=== PATIENT | female | born 1990 | race Caucasian/White ===

== ENCOUNTER 2022-11-08 02:09 | Emergency (ER) | payer BC, SELFPAY ==
[2022-11-08 02:12] VITALS: BP 122/82; PULSE 88; RESP 20; O2SAT 100
--- NOTE | 2022-11-08 02:14 | ED.DENTAL ---
HPI - Dental/Oral General Chief complaint: Dental/Oral Stated complaint: Tooth Pain Time Seen by Provider: 11/08/22 02:13 History of Present Illness HPI Narrative: This is a 32-year-old female with past medical history of dental caries, status post tooth extraction 3 days ago, who presents to the emergency department with pain and swelling at the extraction site. She states the pain is dull, rated 6 out of 10 without radiation. She is primarily concerned with swelling at the jaw. She states she has taken ibuprofen approximately 6-8 hours ago with some improvement. She denies difficulty swallowing or breathing. Related Data Allergies Allergy/AdvReac Type Severity Reaction Status Date / Time No Known Allergies Allergy Verified 11/08/22 02:15 Review of Systems Review of Systems: CONSTITUTIONAL: Denies fever, chills, or sweats. ENT: Left-sided dental pain denies rhinorrhea, congestion, sore throat, or otalgia. CARDIOVASCULAR: Denies chest pain, palpitations, or edema. RESPIRATORY: Denies cough or dyspnea. GASTROINTESTINAL: Denies abdominal pain, nausea, vomiting, or diarrhea. GENITOURINARY: Denies dysuria or hematuria. Currently menstruating SKIN: Denies rash or itching. NEUROLOGIC: Denies headache, numbness, dizziness, or weakness. PSYCHIATRIC: Denies anxiety or depression. [facility] Past Medical History Medical History (Updated 11/08/22 @ 02:29 by Sergio Aguero MD) Factor V Leiden Surgical History Surgical History (Updated 11/08/22 @ 02:29 by Sergio Aguero MD) H/O section History of cholecystectomy Exam Narrative: GENERAL: Well-developed, well-nourished, and in no acute distress. HEAD: Normocephalic, atraumatic. EYES: PERRLA and EOMI. ENT: Mild erythema and swelling at tooth number 17, tender to palpation. There does not appear to be any exposed bone. Nares clear, no rhinorrhea or epistaxis. Mucous membranes moist. Oropharynx without tonsillar hypertrophy exudate NECK: Supple. No adenopathy or masses. No carotid bruits or JVD CHEST: Clear to auscultation. No respiratory distress. No wheezes rales or rhonchi HEART: Regular rate and rhythm. No murmur heard. Normal peripheral pulses. EXTREMITIES: Normal range of motion. No edema. PSYCH: Normal mood and affect. Course Course Emergency Course: 02:18 - Exam is consistent with periapical abscess. Will treat with IM Toradol and antibiotics with recommendation for close dental follow-up. Discussed return emergency precautions including signs/symptoms of airway compromise. The patient voiced understanding and is comfortable with the plan. All questions answered to her satisfaction. Vital Signs Vital signs: Vital Signs Pulse Rate 88 11/08/22 02:12 Respiratory Rate 20 11/08/22 02:12 Blood Pressure 122/82 11/08/22 02:12 Pulse Oximetry 100 11/08/22 02:12 Oxygen Delivery Room Air 11/08/22 02:12 Pulse Rate 88 11/08/22 02:12 Respiratory Rate 20 11/08/22 02:12 Blood Pressure 122/82 11/08/22 02:12 Pulse Oximetry 100 11/08/22 02:12 Oxygen Delivery Room Air 11/08/22 02:12 MDM - Dental/Oral MDM Narrative Medical decision making narrative: Plan: Pain control, antibiotics, dental follow up Differential Diagnosis Differential diagnosis: Likely dental caries, dental abscess and other Discharge Plan Discharge Clinical Impression: Toothache, Dental abscess Patient Disposition: Home, Self-Care Condition: Stable Instructions: Antibiotic Form, Dental Abscess (ED) Additional Instructions: You were seen in the emergency department. Your exam is consistent with an early dental abscess. I recommend antibiotics and follow-up with your dentist. If you develop difficulty breathing, difficulty swallowing, or other emergent concerns for life, limb, or eyesight, return to the emergency department. Patient Language: Ecuadorean Prescriptions: New amoxicillin-pot clavulanate 875-125 mg tablet 1 tablet
[2022-11-08] MEDS: AMOXICILLIN/CLAVULANATE K 875-125 MG TAB 1 TABLET PO (02:19)
[2022-11-08] MEDS: KETOROLAC 30 MG/ML VIAL (*BKC) IM (02:19)
[2022-11-08 02:28] VITALS: BP 122/86; PULSE 69; RESP 20; TEMP 36.6; O2SAT 100
== END 2022-11-08 02:31 | disposition home or self-care (01) ==
LOC: CHSED 02:28
PROVIDERS: Emergency Provider Preventive Medicine Aerospace Medicine
DX: K08.89 Other specified disorders of teeth and supporting structures (principal); K04.7 Periapical abscess without sinus
CPT/HCPCS: 96372; 99283; A9270; J1885

== ENCOUNTER 2023-10-07 15:57 | Emergency (ER) | payer SELFPAY ==
[2023-10-07 15:57] VITALS: BP 130/78; PULSE 108; RESP 20; TEMP 37.6; O2SAT 99
--- NOTE | 2023-10-07 16:03 | ED.GENADULT ---
HPI - General Adult General Chief complaint: Extremity Injury, Lower Stated complaint: left leg pain Time Seen by Provider: 10/07/23 16:03 History of Present Illness HPI narrative: Leola is a 33F with a PMH of Factor V Leiden mutation, tobacoo abuse that presented to the ED with pain and swelling in her left low leg. She had been having pain from the back of her buttock down the back of her leg for some time but it was improving. A few days ago she started having pain in her left medial groin down to her leg along with swelling. She has been off work and has been more sedentary. She is not taking her aspirin and she is currently smoking. She denies CP, dyspnea, lightheadedness, fevers and chills. Related Data Allergies Allergy/AdvReac Type Severity Reaction Status Date / Time No Known Allergies Allergy Verified 10/07/23 16:06 Review of Systems Review of Systems: All systems reviewed & are unremarkable except as noted in HPI and below PMFSH Past Medical History Medical History (Updated 10/07/23 @ 16:25 by Jeramy Larios DO) Factor V Leiden Surgical History Surgical History (Updated 11/08/22 @ 02:29 by Sergio Aguero MD) H/O section History of cholecystectomy Exam Const: General: healthy appearing and no acute distress Nutritional Appearance: well nourished Orientation/consciousness: patient oriented x3 HENMT: Head: normal to inspection Ears: external ears normal Face and sinus: normal facial exam Eyes: Conjunctivae: conjunctivae normal Pupils: Equal, round and reactive pupils present Neck: Neck: normal visual inspection Chest: Chest palpation & inspection: normal inspection of the chest Resp: Effort & Inspection: normal respiratory effort Cardio: Rate: regular rate GI: Inspection: non-distended Skin: General skin exam: normal color Neuro: General: patient oriented x3 and moves all extremities Extrem: Other: Left leg was swollen and TTP with a +Christian sign. In addition the left calf measured 50cm while the right measured 44. Course Course Emergency Course: Given her FActor V, smoking, inactivity and physical exam she most likely has a DVT. However, as it is a holiday we do not have US services. She was treated with lovenox in the ED and an outpatient order was given for a lower extremity ultrasound. She was instructed to call scheduling tomorrow and get it done LITZY and to stay on the lovenox until then. 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 She does not have a PCP so a list was given to her to establish quickly. She was instructed to return to the ED for any new symptoms including chest pain or dyspnea. Vital Signs Vital signs: Vital Signs Temperature 99.7 F H 10/07/23 15:57 Pulse Rate 108 H 10/07/23 15:57 Respiratory Rate 20 10/07/23 15:57 Blood Pressure 130/78 10/07/23 15:57 Pulse Oximetry 99 10/07/23 15:57 Oxygen Delivery Room Air 10/07/23 15:57 Temperature 99.7 F H 10/07/23 16:07 Pulse Rate 108 H 10/07/23 16:07 Respiratory Rate 20 10/07/23 16:07 Blood Pressure 130/78 10/07/23 16:07 Pulse Oximetry 99 10/07/23 16:07 Oxygen Delivery Room Air 10/07/23 16:07 Medical Decision Making Vital Signs Vital Signs: Vital Signs Temperature 99.7 F H 10/07/23 15:57 Pulse Rate 108 H 10/07/23 15:57 Respiratory Rate 20 10/07/23 15:57 Blood Pressure 130/78 10/07/23 15:57 Pulse Oximetry 99 10/07/23 15:57 Oxygen Delivery Room Air 10/07/23 15:57 Temperature 99.7 F H 10/07/23 16:07 Pulse Rate 108 H 10/07/23 16:07 Respiratory Rate 20 10/07/23 16:07 Blood Pressure 130/78 10/07/23 16:07 Pulse Oximetry 99 10/07/23 16:07 Oxygen Delivery Room Air 10/07/23 16:07 Discharge Plan Discharge Clinical Impression: DVT (deep venous thrombosis) Patient Disposition: Home, Self-Care Condition: Stable Instructions: Deep Vein Thrombosis (ED) Additional Instruction
[2023-10-07 16:07] VITALS: BP 130/78; PULSE 108; RESP 20; TEMP 37.6; O2SAT 99
[2023-10-07] MEDS: ENOXAPARIN 120 MG/0.8 ML SYRINGE SUB-Q (16:28)
[2023-10-07] MEDS: HYDROcodone/acetaminophen (*CRX) 5-325 MG TABLET 1 TAB PO (16:56)
== END 2023-10-07 17:00 | disposition home or self-care (01) ==
PROVIDERS: Emergency Provider Family Medicine
DX: I82.402 Acute embolism and thrombosis of unspecified deep veins of left lower extremity (principal); D68.51 Activated protein C resistance; F17.200 Nicotine dependence, unspecified, uncomplicated
CPT/HCPCS: 96372; 99283; A9270; J1650

== ENCOUNTER → 2025-01-30 13:23 | Outpatient (REF) | payer OTHER, SELFPAY ==
--- OUTSIDE RECORDS SUMMARY | 2025-01-30 14:57 | XMS_ITS | Clinical Summary ---
Author Organization [facility] Address [address] [place] [id number] Care Team Providers Care Keypunch Operator Name Role Phone AdZachhardik CAMPOS Primary Care Provider Allergies No known active allergies Medications apixaban (ELIQUIS) 5 MG tablet Take 1 tablet (5 mg total) by mouth 2 (two) times daily. 60 tablet 04/30/2024 Active Encounters Date Type Department Care Team Description 01/22/2025 Patient Self-Triage [facility] DEFAULT [facility]ri [facility] Provider 01/18/[address] [place] [address] Kanwal Heck MD Appointment Request from Last 3 Months Social History Tobacco Use Types Packs/Day Years Used Date Smoking Tobacco: Every Day Cigarettes 11.2 Started: 2013 Smokeless Tobacco: Never Tobacco Cessation:Ready to Q uit: Not Asked; Counseling Given: Not Answered Alcohol Use Standard Drinks/Week Comments Not Currently 0 (1 standard drink = 0.6 oz pur e alcohol) Comments No Sex and Gender Information Value Date Recorded Sex Assigned at Not on file Legal Sex Female 6:45 PM CDT Gender Identity Not on file Sexual Orientation Not on file Last Filed Vital Signs Vital Sign Reading Time Taken Comments Blood Pressure 141/84 09/14/2024 2:00 PM CDT Pulse 108 09/14/2024 12:05 PM CDT Temperature 36.2 C (97.2 F) 09/14/2024 12:05 PM CDT Respiratory Rate 18 09/14/2024 2:00 PM CDT Oxygen Saturation 100% 09/14/2024 2:00 PM CDT Inhaled Oxygen Concentration - - Weight 117.9 kg (260 lb) 09/14/2024 12:05 PM CDT Height 167.6 cm (5' 6 ) 09/14/2024 12:05 PM CDT Body Mass Index 41.97 09/14/2024 12:05 PM CDT Plan of Treatment Upcoming Encounters Date Type Department Care Team (Late st Contact Info) Description 02/20/2025 3:30 PM CDT Appointment [facility] [address] [place] [address] Zee Wellington NP [address] [place] [address] 03/14/2025 9:45 AM CDT Laboratory Only [facility] [address] [place] [address] Gildardo Melendez MD [address] [facility] [address] [id number] 03/28/2025 1:00 PM CDT Initial Consult [place] [id number] [facility] [place] [address] Jose Loera MD [address] [place] [id number] Health Maintenance Due Date Last Done Comments Cervical Cancer Screening Pap Smear (Age 30 to 64) Every 3 Years 1989 Annual Physical 1992 Pneumococcal Vaccine: Pediatrics (0 to 5 Years) and At-Risk Patients (6 to 64 Years) (2 of 2 - PCV) 07/05/2014 07/05/2013 Cervical Cancer Screening Pap with HPV Testing (Age 30 to 64) Every 5 Years 2019 Cervical Cancer Screening with HPV 2019 DTaP, Tdap and Td Vaccines (7 - Td or Tdap) 06/26/2023 06/26/2013, 07/04/2003, 04/21/1994, Additional history exists COVID-19 Vaccine ( season) 2024 Influenza Adult (#1) 2024 09/17/2015 Hepatitis B Vaccines Completed 03/27/1999, 10/24/1998, 09/19/1998 HPV Vaccines Completed 10/26/2007, 06/15, 04/20/2007 Hepatitis C Completed 05/13/2014 Meningococcal B Vaccine Aged Out No l onger eligible based on patient's age to complete this topic Meningococcal Vaccine Aged Out No francisco tor eligible based on patient's age to complete this topic RSV Immunizations Under 20 Months Aged Out No longer eligible based on patient's age to complete this topic Insurance [employer] [address], [place] [address] Care Teams Keypunch Operator Relationship Specialty Start Date End Date Joan Duong APNP [address] [facility] [id number] [place] [address] PCP - General FAMILY PRACTICE 09/14/24
--- OUTSIDE RECORDS SUMMARY | 2025-01-30 14:57 | XMS_ITS | Clinical Summary ---
Author Organization [facility] Address [address] [facility] [place] [address] Care Team Providers Care Deputy Insurance Commissioner Name Role Phone Nayan Joel MD Primary Care Provider [phone] [facility],non-owned Affiliates and Associated Physician Practices is amultiple site organization consisting of ambulatory clinics and hospital sitesin [place], [place], [place] and [place]. This disclosure is being madepursuant to the Care Everywhere program and may not contain all information available regarding this patient. Last updated 18.[employer] Allergies No known active allergies Medications * Be aware that medications may not be up to date on this document. Alwaysverify current medications with the patient. Medication Sig Dispensed Refills Start Date End Date Status MV-Min-Fe Cbn-FA-DHA (PREQUE 10) 15-0.5-50 MG TABS Take by mouth. Active ondansetron (ZOFRAN) 4 MG tablet Take 4 mg by mouth every 8 hours as needed. Active ranitidine (ZANTAC) 150 MG tabletIndications:Ga stroesophageal Reflux Disease Take 150 mg by mouth 2 times daily. Indications: Gastroesophageal Reflux Disease Active oxycodone-acetaminop hen (PERCOCET) 5-325 MG tablet Take 1-2 Tabs by mouth every 4 hours as needed. 40 Tab 0 07/07/2013 Active ibuprofen (MOTRIN) 600 MG tablet Take 1 Tab by mouth every 6 hours as needed. 60 Tab 1 07/07/2013 Active docusate sodium (COLACE) 100 MG capsule Take 1-2 Caps by mouth nightly as needed for Constipation. 30 Cap 2 07/07/2013 Active iron polysaccharides (NIFEREX 150) 150 MG capsule Take 1 Cap by mouth daily with lunch. 30 Cap 2 07/07/2013 Active Active Problems Problem Noted Date Diagnosed Date Suspected Placenta disease 06/18/2013 Overview (06/18/2013): Send placenta for Genetics, Dr. Lazar in [facility] Rule out confined placental mosaicism. Oligohydramnios 06/18/2013 Supervision of high-risk 06/08/2013 Overview (06/19/2013): Tadeo Andino w/ transfer to [facility] Jose Guadalupe [facility] Dating: L=8wk documented Prenatals: A+/I/-/-, HIV NR GCT: 84 GBS neg 06/08 Tobacco use complicating 06/08/2013 Overview (06/08/2013): 1/2 ppd Nicotine patch while inpatient IUGR (intrauterine growth restriction) 3 Overview (07/25/2013): Severe IUGR with rEDV Abnormal ductus TORCH w/u negative Cytogenetics 46XY GERD (gastroesophageal reflux disease) 3 Breech presentation 06/08/2013 Family history of cleft lip 04/04/2013 Overview (06/08/2013): FOB's niece has cleft lip Obesity complicating peripregnancy, antepartum 0 04/04/2013 Family history of Downs syndrome 04/03/2013 Overview (06/08/2013): Patient's brother has Down's Syndrome Normal amnio: 46 XY, although sample amount was insufficient Immunizations Name Administration Dates Next Due PNEUMOCOCCAL PPSV23 07/05/2013 TDAP (7yrs+) 06/26/2013 Family History Medical History Relation Name Comments Genetic/Metabolic Disease Brother Do wn Syndrome Cancer Maternal Grandmother lung Heart Disease Paternal Grandfather Relation Name Status Comments Brother Maternal Grandmother Paternal Grandfather Social History Tobacco Use Types Packs/Day Years Used Date Smoking Tobacco: Every Day Cigarettes 0.5 5 Smokeless Tobacco: Current Tobacco Cessation:Ready to Q uit: Yes; Counseling Given: Yes Alcohol Use Standard Drinks/Week Comments No 0 (1 standard drink = 0.6 oz pur e alcohol) Sex and Gender Information Value Date Recorded Sex Assigned at Not on file Gender Identity Not on file Sexual Orientation Not on file Last Filed Vital Signs Vital Sign Reading Time Taken Comments Blood Pressure 122/72 05/24/2014 11:22 AM CDT Pulse 52 05/24/2014 11:22 AM CDT Temperature 36.4 C (97.6 F) 05/24/2014 11:22 AM CDT Respiratory Rate 20 05/16/2014 9:00 AM CDT Oxygen Saturation 98% 05/16/2014 9:00 AM CDT Inhaled Oxygen Concentration - - Weight 104.3 kg (230 lb) 05/24/2014 11:22 AM CDT Height 167.6 cm (5' 6 ) 05/12/2014 11:55 PM CDT Body Mass Index 37.12 05/12/2014 11:55 PM CDT Plan of Treatment Health Maintenance Due Date Last Done Comments PAP SMEAR 1989 HIV SCREENING 2004 HEPATITIS B VACCINE (1 of 3 - 19+ 3-dose series) 2008 PNEUMOCOCCAL VACCINE (2 of 2 - PCV) 07/05/2014 07/05/2013 DTAP/TDAP/TD VACCINES (2 - T d or Tdap) 06/26/2023 06/26/2013 COVID-19 VACCINE (1 - 2023-2 5 season) 2024 INFLUENZA VACCINE (#1) 2024 DEPRESSION SCREENING 11/15/2024 ZOSTER VACCINE (1 of 2) 2039 HEPATITIS C SCREENING Completed 05/13/2014 HIB VACCINE Aged Out No longer eligi ble based on patient's age to complete this topic HPV VACCINE Aged Out No longer eligi ble based on patient's age to complete this topic MENINGOCOCCAL (Group B) VACC INE SHARED DECISION-MAKING Aged Out No longer eligibl e based on patient's age to complete this topic MENINGOCOCCAL GROUPS A/C/Y/W VACCINE Aged Out No longer eligible b ased on patient's age to complete this topic Procedures Procedure Name Priority Date/Time Associated Diagnosis Comments HEPATITIS SCREEN ACUTE Routine 05/13/2014 3:15 PM CDT from Last 3 Months or Most Recently Relevant to Health Maintenance Results * HEPATITIS SCREEN ACUTE (05/13/2014 3:15 PM CDT) Hepatitis A Virus Antibody IgM Non-react [facility] Hepatitis B Virus Surface Antigen Non-react [facility] Hepatitis B Core Virus Antibody IgM Non-react [facility] Hepatitis C Antibody Non-react [facility] Comment: Hepatitis C Antibody screen indicates no serologic evidence of past or current infection with Hepatitis C Virus. Patients with unexplained liver disease who are immunocompromised or suspected of having acute Hepatitis C infection may benefit from Nucleic Acid Test (SUSAN) for Hepatitis C Viral RNA to confirm Hepatitis C status. Blood specimen (specimen) BLOOD SPECIMEN / Unknown 05/13/2014 3:15 PM CDT 05/13/2014 3:15 PM CDT Historical Provider LAB - CHEMISTRY O RDERABLES [address] [phone] from Last 3 Months or Most Recently Relevant to Health Maintenance Advance Directives * FULL RESUSCITATION (Latest Code Status on File) Date Activated Date Inactivated Comments 06/08/2013 6:21 PM 07/07/2013 2:32 PM Care Teams Deputy Insurance Commissioner Relationship Specialty Start Date End Date Nayan Joel MD PCP - General Internal Medicine 04/04/13
== END ==
LOC: ANHLAB 13:23
PROVIDERS: Visit Provider Physician Assistant Surgical
DX: D23.39 Other benign neoplasm of skin of other parts of face (principal)
CPT/HCPCS: 88305